=== PATIENT | female | born 1955 | race Caucasian/White ===

== ENCOUNTER 2024-01-07 08:38 | Outpatient (REF) | payer MEDICARE, SELFPAY ==
[2024-01-07 14:38] LABS: MANUAL DIFF FLAG NO
[2024-01-07 14:52] LABS: Basophils Percent Auto 0.6 % (0-2); Eosinophils Absolute Auto 0.1 X10*3/uL (0.0-0.4); Eosinophils Percent Auto 1.8 % (0-4); Hematocrit 41.7 % (37.0-47.0); Hemoglobin 13.5 g/dl (12.0-16.0); Imm Gran Abs Auto 0.02 X10*3/uL (0.00-0.03); Imm Gran Pct Auto 0.4 % (0.0-0.4); Lymphocytes Absolute Auto 1.5 X10*3/uL (1.2-4.9); Lymphocytes Percent Auto 28.9 % (20-40); Mean Corpuscular HGB Conc 32.4 g/dl (31.0-35.0); Mean Corpuscular Hemoglobin 28.4 pg (27.0-33.0); Mean Corpuscular Volume 87.6 fL (80.0-98.0); Mean Platelet Volume 11.6 fL (9.4-12.3); Monocytes Absolute Auto 0.3 X10*3/uL (0.1-1.2); Monocytes Percent Auto 5.3 % (2-11); Neutrophils Absolute Auto 3.2 x10*3/uL (2.0-8.3); Platelet Count 232 X10*3/uL (160-400); Red Blood Count 4.76 X10*6/uL (4.20-5.50); Red Cell Distribution Width 13.3 % (11.0-16.0); White Blood Count 5.1 X10*3/uL (4.8-10.8)
[2024-01-07 15:13] LABS: Creatinine Urine 164.72 mg/dL; Microalbum/Creatinine Ratio Ur 12.7 ug/mg cr (<30)
[2024-01-07 15:13] LABS: Alanine Aminotransferase 20 U/L (0-31); Albumin Level 4.1 g/dL (3.5-5.0); Alkaline Phosphatase 92 U/L (39-117); Anion Gap 11 (12-20); Aspartate Amino Transferase 18 U/L (5-31); Bilirubin Direct 0.3 mg/dL (0.0-0.5); Bilirubin Total 0.8 mg/dL (0.0-1.0); Blood Urea Nitrogen 14 mg/dL (9-16); Calcium 8.9 mg/dL (8.4-10.2); Carbon Dioxide 30 mmol/L (22-29); Chloride 103 mmol/L (96-108); Cholesterol 207 mg/dL (<200); Estimated Glomerular Filt Rate > 60; Glucose Fasting 117 mg/dL (60-99); HDL Cholesterol 54 mg/dL (>40); LDL Cholesterol Calculated 128 mg/dL (<100); Potassium 3.7 mmol/L (3.3-5.1); Sodium 140 mmol/L (135-145); Total Protein 7.2 g/dL (6.5-8.0); Triglycerides 129 mg/dL (<150)
[2024-01-07 15:14] LABS: TSH reflex Free T4 1.11 uIU/mL (0.32-4.0); Vitamin D 25-OH Total 41.7 ng/mL (>30)
== END 2024-01-07 08:39 | disposition home or self-care (01) ==
LOC: HO.CHCLDS 08:38
PROVIDERS: Visit Provider Pediatrics
DX: I10 Essential (primary) hypertension (principal); Z71.3 Dietary counseling and surveillance; Z71.82 Exercise counseling
CPT/HCPCS: 36415; 80048; 80061; 80076; 82043; 82306; 82550; 82570; 84443; 85025

== ENCOUNTER 2024-04-27 08:05 | Outpatient (REF) | payer MEDICARE, SELFPAY ==
[2024-04-27 16:54] LABS: Cholesterol 190 mg/dL (<200); HDL Cholesterol 51 mg/dL (>40); LDL Cholesterol Calculated 113 mg/dL (<100); Triglycerides 132 mg/dL (<150)
[2024-04-27 17:00] LABS: Estimated Average Glucose 134 mg/dL; Hemoglobin A1c % 6.3 % (<6.0)
[2024-04-27 17:01] LABS: Creatinine Urine 160.04 mg/dL; Microalbum/Creatinine Ratio Ur 11.2 ug/mg cr (<30)
== END 2024-04-27 08:06 | disposition home or self-care (01) ==
LOC: HO.CHCLDS 08:05
PROVIDERS: Visit Provider Pediatrics
DX: I10 Essential (primary) hypertension (principal); E66.01 Morbid (severe) obesity due to excess calories; Z68.35 Body mass index [BMI] 35.0-35.9, adult; R73.03 Prediabetes
CPT/HCPCS: 36415; 80061; 82043; 82570; 83036

== ENCOUNTER 2025-03-30 08:57 | Outpatient (REF) | payer MEDICARE, SELFPAY ==
--- OUTSIDE RECORDS SUMMARY | 2025-03-30 09:03 | XMS_ITS | Clinical Summary ---
Author Organization [facility] ity Address [address] [place] [address] Care Team Providers Care Bank Messenger Name Role Phone Ki Brar MD Primary Care Provider [phone] Surgical History Surgery Date Site/Laterality Comments OOPHORECTOMY PROCEDURE: HISTORICAL OOPHORECTOMY OTHER SURGICAL HISTORY Right PROCEDURE: OK ASPIRATION&/INJECTION GANGLION CYST ANY LOCATJ; COMMENT: removal TONSILLECTOMY PROCEDURE: HISTORICAL TONSILLECTOMY BOWEL RESECTION 2010 PROCEDURE: HISTORICAL BOWEL RESECTION; COMMENT: Diverticulitis Medical History Medical History Date Comments Hypertension 11/05/2016 DX:Hypertension Allergic rhinitis 11/05/2016 DX:Allergic rh initis Diverticulosis of colon 11/05/2016 DX:Diver ticulosis of colon; COMMENT: Surgery 2010 Esophageal reflux 08/17/2018 DX:Esophageal reflux Chronic back pain 08/17/2018 DX:Chronic kimberly k pain Hyperlipidemia 08/17/2018 DX:Hyperlipidemi a History of migraine headaches 06/10/2012 DX :History of migraine headaches Generalized osteoarthritis o f multiple sites 09/01/2014 DX:Generalized osteoarthriti s of multiple sites Hyperplastic colon polyp 01/01/2017 DX:Hype rplastic colon polyp Microalbuminuria 09/11/2018 DX:Microalbumin uria Trigger middle finger of right hand 09/19/2016 DX:Trigger middle finger of right hand Type 2 diabetes mellitus wit h renal manifestations (CMS/HCC V24, CMS/HCC V28) 11/05/2016 DX:Type 2 diabetes mellitus with renal manifestations (HCC) Family History Relation Name Status Comments Father Mother Social History Tobacco Use Types Packs/Day Years Used Date Smoking Tobacco: Never Smokeless Tobacco: Never Alcohol Use Standard Drinks/Week Comments Yes 0 (1 standard drink = 0.6 oz pur e alcohol) Comments Unknown Sex and Gender Information Value Date Recorded Sex Assigned at Not on file Legal Sex Female 5:14 PM EST Gender Identity Not on file Sexual Orientation Not on file Obstetrics History Plan of Treatment Health Maintenance Due Date Last Done Comments Diabetes: Annual GFR (Glomerular Filtration Rate) 1955 Diabetes: Annual Foot Exam 1964 Diabetes: Annual Retina Eye Exam 1964 Cervical Cancer Screening: HPV 1975 Zoster Vaccines (1 of 2) 2004 RSV Immunization Adult Patients (1 - Risk 60-74 years 1-dose series) 2014 Pneumococcal Vaccine: 50+ Years (3 of 3 - PCV20 or PCV21) 02/19/2023 02/19/2018, 01/18/2013 COVID-19 Vaccine ( - 2023-2 5 season) 2024 Cholesterol Screening (Lipid Panel) 07/31/2024 Depression Screening 07/31/2024 Diabetes: Annual Urine Albumin-Creatinine Ratio (uACR) 07/31/2024 Diabetes: Blood Sugar Contro l Test (HGBA1C) 07/31/2024 Falls Risk Assessment 07/31/2024 Hepatitis C Screening 07/31/2024 Hypertension/CHF/CAD Annual BMP Blood Test 07/31/2024 Osteoporosis Screening (Bone Density Screening) 07/31/2024 Social Influencers of Health Screening 07/31/2024 Influenza Vaccine (Season Ended) 2025 DTaP,Tdap,and Td Vaccines (2 - Td or Tdap) 06/07/2026 06/07/2016 Breast Cancer Screening 07/30/2026 07/30/2024 Colorectal Cancer Screening: Colonoscopy 11/26/2026 11/24/2024 HIB Vaccines Aged Out No longer eligi ble based on patient's age to complete this topic HPV Vaccines Aged Out No longer eligi ble based on patient's age to complete this topic Hepatitis A Vaccines Aged Out No long er eligible based on patient's age to complete this topic Hepatitis B Vaccines Aged Out No long er eligible based on patient's age to complete this topic IPV Vaccines Aged Out No longer eligi ble based on patient's age to complete this topic MMR Vaccines Aged Out No longer eligi ble based on patient's age to complete this topic Meningococcal ACWY Vaccine Aged Out N o longer eligible based on patient's age to complete this topic Meningococcal B Vaccine Aged Out No l onger eligible based on patient's age to complete this topic RSV Immunization Patients Under 20 months Aged Out No longer eligible b ased on patient's age to complete this topic Varicella Vaccines Aged Out No longer eligible based on patient's age to complete this topic Procedures Procedure Name Priority Date/Time Associated Diagnosis Comments EXTERNAL COLONOSCOPY REPORT Routine 11/24/2024 2:39 PM EST TAY SCREENING DIGITAL Routine 07/30/2024 3:16 PM EDT from Last 3 Months or Most Recently Relevant to Health Maintenance Results * External Colonoscopy Report (11/24/2024 2:39 PM EST) Anatomical Region Laterality Modality Endoscopy us Historical Provider GI~PROCEDURE ORDERABLES F inal Result * TAY SCREENING DIGITAL (07/30/2024 3:16 PM EDT) Anatomical Region Laterality Modality Mammography 08/04/2024 3:01 PM EST Addenda Addendum by Paulino Dunham MD on 08/04/2024 3:03 PM EST Addendum: Comparison with previous outside studies 06/27/2023, 06/23/2021 There has been no suspicious interval change. ASSESSMENT: BI-RADS 1: NEGATIVE RECOMMENDATION(S): 1: Routine screening mammogram BILATERAL in 1 year. -------- ADDENDUM -------- Dictated By: Paulino Dunham Dictated Date: 08/04/2024 15:01 ET Assigned Physician: Paulino Dunham Reviewed and Electronically Signed By: Paulino Dunham Signed Date: 08/04/2024 15:03 ET Workstation ID: [id number] Transcribed By: Self Edit Transcribed Date: 08/04/2024 15:01 ET Narrative 07/30/2024 3:16 PM EDT [facility] Diagnostic Imaging Department [address] [place] [id number] Patient: NATALIE GENTILE /Age/Sex: 1955 - 69 - F Unit#: [id number] Location/Status: SPDIMAM/REG CLI Mnemonic/Ordering Site: [facility] Ordering Physician: KI BRAR Tay Screening Digital - 07/30/24 - 1404 Report Status:Signed EXAM: SCREENING MAMMOGRAPHY, BILATERAL HISTORY: SCREENING. Mother diagnosed with breast cancer. COMPARISON: None available TECHNIQUE: Synthesized CC and MLO projections of each breast. Tomosynthesis of each breast in the CC and MLO projections. ADDITIONAL IMAGING: None Computer-aided detection was employed with the [employer] 3-D. TISSUE DENSITY: There are scattered areas of fibroglandular density. (BI-RADS category B) FINDINGS: RIGHT BREAST: No suspicious mass. No suspicious calcification. No distortion. No additional suspicious right breast findings LEFT BREAST: No suspicious mass. No suspicious calcification. No distortion. No additional suspicious left breast findings IMPRESSION: No mammographic evidence of malignancy. A negative mammogram in the presence of a clinically suspicious palpable abnormality does not preclude the possibility of malignancy or alter the indications for biopsy. ASSESSMENT: BI-RADS 1: NEGATIVE RECOMMENDATION(S): 1: Routine screening mammogram BILATERAL in 1 year. Dictating Physician: Bin DUNHAM BRET MD Electronically Signed by: Bin DUNHAM BRET MD Dic Date/Time: 07/30/241512 Sign date/Time: 07/30/24 1516 Procedure Note Paulino Dunham MD - 07/31/2024 [facility] Diagnostic Imaging Department [address] [place] [id number] Patient: COREYNATALIE /Age/Sex: 1955 - 69 - F Unit#: [id number] Location/Status: SPDIMAM/REG CLI Mnemonic/Ordering Site: [facility] Ordering Physician: KI BRAR Tay Screening Digital - 07/30/24 - 6965 Report Status:Signed EXAM: SCREENING MAMMOGRAPHY, BILATERAL HISTORY: SCREENING. Mother diagnosed with breast cancer. COMPARISON: None available TECHNIQUE: Synthesized CC and MLO projections of each breast.Tomosynthesis of each breast in the CC and MLO projections. ADDITIONAL IMAGING: None Computer-aided detection was employed with the [employer] AI 3-D. TISSUE DENSITY: There are scattered areas of fibroglandular density.(BI-RADS category B) FINDINGS: RIGHT BREAST: No suspicious mass. No suspicious calcification. No distortion. Noadditional suspicious right breast findings LEFT BREAST: No suspicious mass. No suspicious calcification. No distortion. Noadditional suspicious left breast findings IMPRESSION: No mammographic evidence of malignancy. A negative mammogram in the presence of a clinically suspicious palpable abnormality does not preclude the possibility of malignancy or alter the indications for biopsy. ASSESSMENT: BI-RADS 1: NEGATIVE RECOMMENDATION(S): 1: Routine screening mammogram BILATERAL in 1 year. Dictating Physician: Bin DUNHAM BRET MD Electronically Signed by: Bin DUNHAM BRET MD Dic Date/Time: 07/30/24 1513 Sign date/Time: 07/30/241515 us Ki Brar MD IMG BI PROCEDURES Edited Resu lt - Final from Last 3 Months or Most Recently Relevant to Health Maintenance Care Teams Bank Messenger Relationship Specialty Start Date End Date Ki Brar MD [address] [place] [phone] PCP - General 05/14/23
--- OUTSIDE RECORDS SUMMARY | 2025-03-30 09:04 | XMS_ITS | Encounter Summary ---
Author Organization [employer] Address [address] [facility] [address] [place] [address] Care Team Providers Care Video Engineer Name Role Phone Cris Brar MD Primary Care Provider [phone] Reason for Visit * Reason Comments Med Refill Encounter Details Date Type Department Care Team ([facility] st Contact Info) Description 10/21/2024 Refill [facility] PEDS [address] [place], [place] [phone] Cris Brar MD [address] [place] [address] Social History Tobacco Use Types Packs/Day Years Used Date Smoking Tobacco: Never Passive Smoke Exposure: Never Smokeless Tobacco: Never Alcohol Use Standard Drinks/Week Comments Never 0 (1 standard drink = 0.6 oz pur e alcohol) Housing Stability Answer Date Recorded What is your housing situation today? I have oziel goodwin 01/01/[address] you li ve. Do you have problems with any of the following? None of the above 01/01/2024 Food Insecurity Answer Date Recorded Within the past 12 months, y ou worried that your food would run out before you got money to buy more: Never True 01/01/2024 Within the past 12 months,th e food you bought just didn't last and you didn't have enough money to get more: Never True 12/2023 Transportation Answer Date Recorded In the past 12 months, has l ack of transportation kept you from medical appts, meetings, work or from getting things needed for daily living? No 01/01/2024 Utilities Answer Date Recorded In the past 12 months, has t he electric, gas, oil or water company threatened to shut off services in your home? No 01/01/2024 Depression Answer Date Recorded Patient Health Questionnaire-2 Score 0 09/25/2022 Comments Unknown Sex and Gender Information Value Date Recorded Sex Assigned at Female 07/29/2022 10:37 AM EDT Legal Sex Female 10:37 AM EDT Gender Identity Female 07/29/2022 10:37 AM EDT Sexual Orientation Straight 07/29/2022 10 :37 AM EDT documented as of this encounter Plan of Treatment Upcoming Encounters Date Type Department Care Team (Late st Contact Info) Description 04/05/2025 9:45 AM EDT Office Visit [facility]ED[facility] [address], [place] [phone] Cris Brar MD [address] [place], [place] [phone] 04/12/2025 1:45 PM EDT Office Visit [facility] OPTOMETRY [address] [place] [address] TarkaMacrina, OD [address] [place] [address] documented as of this encounter Goals Goal Patient Goal Type Associated Problems Recent Progress Patient-Stated? Author Eat a balanced, healthy diet Diet Kitty Wong, RN Patient will engage in physical activity safely General Kitty Wong RN documented as of this encounter Visit Diagnoses Not on filedocumented in this encounter Care Teams Video Engineer Relationship Specialty Start Date End Date Cris Brar MD [address] [place] [address] PCP - General Family Medicine 12/21/20 documented as of this encounter
[2025-03-30 14:52] LABS: MANUAL DIFF FLAG NO
[2025-03-30 15:02] LABS: Hematocrit 37.1 % (37.0-47.0); Hemoglobin 11.7 g/dl (12.0-16.0); Imm Gran Abs Auto 0.03 X10*3/uL (0.00-0.03); Imm Gran Pct Auto 0.6 % (0.0-0.4); Lymphocytes Absolute Auto 1.8 X10*3/uL (1.2-4.9); Mean Corpuscular HGB Conc 31.5 g/dl (31.0-35.0); Mean Corpuscular Hemoglobin 27.2 pg (27.0-33.0); Mean Corpuscular Volume 86.3 fL (80.0-98.0); NRBC Abs Auto 0.000 X10*3/uL (0.0-0.012); NRBC Pct Auto 0.0 /100WBC (0.0-0.2); Platelet Count 270 X10*3/uL (160-400); Red Blood Count 4.30 X10*6/uL (4.20-5.50); White Blood Count 5.4 X10*3/uL (4.8-10.8)
[2025-03-30 15:35] LABS: Microalbum/Creatinine Ratio Ur 8.4 ug/mg cr (<30)
[2025-03-30 15:38] LABS: Alanine Aminotransferase 18 U/L (0-31); Albumin Level 4.3 g/dL (3.5-5.0); Alkaline Phosphatase 86 U/L (39-117); Anion Gap 12 (12-20); Aspartate Amino Transferase 19 U/L (5-31); Blood Urea Nitrogen 17 mg/dL (9-16); Calcium 9.2 mg/dL (8.4-10.2); Carbon Dioxide 29 mmol/L (22-29); Chloride 104 mmol/L (96-108); Cholesterol 230 mg/dL (<200); Estimated Glomerular Filt Rate > 60; HDL Cholesterol 52 mg/dL (>40); Potassium 4.2 mmol/L (3.3-5.1); Sodium 141 mmol/L (135-145); Total Protein 7.1 g/dL (6.5-8.0); Triglycerides 153 mg/dL (<150)
== END 2025-03-30 08:58 | disposition home or self-care (01) ==
LOC: HO.CHCLDS 08:57
PROVIDERS: Visit Provider Pediatrics
DX: E11.9 Type 2 diabetes mellitus without complications (principal); Z71.3 Dietary counseling and surveillance; Z71.82 Exercise counseling; I10 Essential (primary) hypertension
CPT/HCPCS: 36415; 80048; 80061; 80076; 82043; 82570; 84443; 85025